=== PATIENT | male | born 1935 | race Caucasian/White ===

== ENCOUNTER 2022-12-18 09:16 | Inpatient (IN) | payer MEDICARE ==
[2022-12-14 12:18] LABS: BASOPHILS # (AUTO) 0.1 X10'3 (0-0.2); BASOPHILS % (AUTO) 1.1 % (0-1); EOSINOPHILS # (AUTO) 0.4 X10'3 (0-0.9); EOSINOPHILS % (AUTO) 7.3 % (0-6); LYMPHOCYTES # (AUTO) 1.2 X10'3 (1.1-4.8); LYMPHOCYTES % (AUTO) 25.3 % (21-51); MEAN CORPUSCULAR HEMOGLOBIN 30.6 PG (27.0-31.0); MEAN CORPUSCULAR HGB CONC 33.1 g/dL (33.0-36.5); MEAN CORPUSCULAR VOLUME 92.5 FL (78-98); MEAN PLATELET VOLUME 6.3 FL (7.4-10.4); MONOCYTES # (AUTO) 0.5 X10'3 (0-0.9); MONOCYTES % (AUTO) 11.2 % (2-12); NEUTROPHILS # (AUTO) 2.7 X10'3 (1.8-7.7); NEUTROPHILS % (AUTO) 55.1 % (42-75); PRE OP HEMATOCRIT 40.6 % (42.0-52.0); PRE OP HEMOGLOBIN 13.5 g/dL (14.0-17.9); PRE OP PLATELET COUNT 196 X10'3 (140-440); PRE OP WHITE BLOOD COUNT 4.8 10'3 (4.8-10.8); RED BLOOD COUNT 4.39 X10'6 (4.70-6.10); RED CELL DISTRIBUTION WIDTH 14.4 % (11.5-14.5)
[2022-12-14 12:49] LABS: APTT 38 SECONDS (22-32); INR 1.3 INR
[2022-12-14 12:57] LABS: ALBUMIN/GLOBULIN RATIO 0.7 (1.1-1.5); ALKALINE PHOSPHATASE 133 IU/L (46-116); BLOOD UREA NITROGEN 12 MG/DL (7-18); BUN/CREATININE RATIO 15.4 (10.0-20.0); CALCIUM 9.1 MG/DL (8.5-10.1); CHLORIDE 104 MMOL/L (99-107); CREATININE 0.78 MG/DL (0.60-1.10); PRE OP ALT 19 U/L (30-65); PRE OP ANION GAP 9 (8-16); PRE OP AST 29 U/L (10-37); PRE OP BILIRUB, TOTAL 0.9 MG/DL (0.0-1.0); PRE OP GLUCOSE 98 MG/DL (70-104); PRE OP POTASSIUM 4.1 MMOL/L (3.4-5.1); PRE OP SODIUM 138 MMOL/L (135-145); TOTAL CARBON DIOXIDE 24.9 MMOL/L (24-32); TOTAL PROTEIN 7.3 G/DL (6.4-8.2); eGFR > 90 ML/MIN
[2022-12-18] VITALS (19 sets, daily range): BP systolic 110–165; BP diastolic 59–80; PULSE 60–62; RESP 10–20; TEMP 96.5–98.4; O2SAT 97–100
[~2022-12-18] VITALS: Ht 175.3 cm; Wt 79.4 kg
[~2022-12-18 09:16] MED LIST: ATOR-2 PO; DOCUMENT DATE & TIME OF BETA-BLOCKER PO ONE; ENOX80SY7 SUBCUT; MALTODEXTRIN/FRUCTOSE 0.68 KCAL/ML LIQUID 296ML BOTTLE PO ONE; METO-384 PO; METO-411 PO; WARF7.5T48 PO; ceFOXitin 2GM-NS 100mL ADDvant 100 ML IV ONE; famotidine 20mg tablet PO ONE; heparin, porcine 5000 units/ml vial SQ ONE; metroNIDAZOLE-Flagyl 500mg/NS 100ml IVPB IV ONE; ringers solution, lacted 1,000 ML IV SCH
[2022-12-18] MEDS ORDERED: metroNIDAZOLE-Flagyl 500mg/NS 100 ML IV ONE (10:59)
[2022-12-18] MEDS ORDERED: CefTRIAXone 2000mg inj ONE (10:59)
[2022-12-18] MEDS ORDERED: LIDOcaine 1% W/epiNEPHrine 1:100,000 20ml vial ONE (10:59)
[2022-12-18] MEDS ORDERED: tobramycin 40mg/ml inj ONE (11:00)
[2022-12-18] MEDS ORDERED: povidone-iodine 10% ointment 1 APPLIC APPLIC TP ONE (11:01)
[2022-12-18] MEDS ORDERED: BUPIVAcaine/PF 2.5 mg/ml (0.25%) 30ml vial ONE (11:01)
[2022-12-18 11:55] LABS: PRE OP PARTIAL THROMB. TIME 27 SECONDS (22-32); PROTHROMBIN TIME 11.1 SECONDS (9.0-12.0)
[2022-12-18] MEDS ORDERED: LIDOcaine 1% (10mg/ml) 2ml vial ONE (12:20)
[2022-12-18] MEDS ORDERED: fentaNYL/PF 50MCG/1 ML 2ML syringe ONE ×2 (12:31→13:27)
[2022-12-18] MEDS ORDERED: propofol inj 20 ML IV ONE (12:33)
[2022-12-18] MEDS ORDERED: LIDOcaine 2% (20mg/ml) 5ml vial ONE (12:33)
[2022-12-18] MEDS ORDERED: sevoflurane 250ml liquid IH ONE (12:42)
[2022-12-18] MEDS ORDERED: hydrALAZINE 20mg/ml inj. IV ONE (12:42)
[2022-12-18] MEDS ORDERED: morphine 2 MG/ML inj. syringe IV PRN (12:45)
[2022-12-18] MEDS ORDERED: ondansetron/PF 4mg/2ml inj IV PRN ×2 (12:45→18:10)
[2022-12-18] MEDS ORDERED: HYDROmorphone/PF 0.2 MG/ML SYRINGE IV PRN (12:45)
[2022-12-18] MEDS ORDERED: ringers solution, lacted 1,000 ML IV SCH (12:45)
[2022-12-18] MEDS ORDERED: INDOCYANINE GREEN 25 MG/10 ML VIAL IV ONE ×2 (15:02→15:05)
[2022-12-18] MEDS ORDERED: phenylephrine 10mg/ml inj. -priapism dosing ONE (16:37)
[2022-12-18] MEDS ORDERED: rocuronium 10mg/ml inj IV ONE (16:37)
[2022-12-18] MEDS ORDERED: dexamethasone sod phosphate 4mg/ml inj. ONE (16:37)
[2022-12-18] MEDS ORDERED: ondansetron/PF 4mg/2ml inj ONE (16:37)
[2022-12-18] MEDS ORDERED: acetaminophen 1,000mg/100ml IV 100 ML IV ONE (16:40)
[2022-12-18] MEDS ORDERED: ceFOXitin 1000 MG inj ONE ×2 (16:53)
[2022-12-18] MEDS ORDERED: morphine 4 MG/ML inj SYRINge IV ONE (17:04)
[2022-12-18] MEDS ORDERED: albumin (Human) 5% 250ml 250 ML IV ONE (17:05)
[2022-12-18] MEDS ORDERED: ketamine 50mg/5ml syringe ONE (17:41)
--- NOTE | 2022-12-18 17:53 | NUR ---
Received from OR via HOSPITAL BED TO RR 6, accompanied by Anesthesiologist DR WHYTE and report given by Anesthesiolgist. PT PRESENTS WITH ART LINE RIGHT WRIST, PIV 20G LEFT WRIST, SPO2 100% 6L MASK, LR RUNNING 100MLS/HR, 2 ABD DRESSING CDI, VSS. Addendum: 12/18/22 at 1814 by Charisse Flores RN, RN Amended: Links added.
[2022-12-18] MEDS ORDERED: glycopyrrolate 0.2mg/ml inj ONE (17:54)
[2022-12-18] MEDS ORDERED: neostigmine methylsulfate 1 MG/ML 10ml vial ONE (17:54)
[2022-12-18] MEDS ORDERED: naloxone 0.4 mg/ml inj IV PRN (18:10)
[2022-12-18] MEDS: HYDROmorphone/PF 0.2 MG/ML SYRINGE IV PRN ×2 (18:16→18:35)
--- NOTE | 2022-12-18 18:19 | NUR ---
ART LINE REMOVED FROM PT'S RIGHT WRIST, SXS AND COBAN DRESSING PLACED. PT TOLERATED WELL.
--- NOTE | 2022-12-18 18:40 | NUR ---
PT'S DAUGHTER LIYAH [phone] SHE CAN BE CALLED AT ANYTIME NO MATTER WHAT THE SITUATION, "PER LIYAH"
[2022-12-18] MEDS: HYDROmorph/NS 0.2 mg/ml PCA 100 ML IV SCH ×3 (18:44→23:00)
[2022-12-18] MEDS ORDERED: LORazepam 2 mg/ml vial IV PRN (19:00)
--- NOTE | 2022-12-18 19:00 | NUR ---
Patient in room PAS IN 900. I have received report from JEROMY Mcqueen in the PACU and had the opportunity to ask questions and assume patient care.
--- NOTE | 2022-12-18 19:13 | NUR ---
Report called to receiving nurse SILVIANO PINZON. Transferred via HOSPITAL BED TO ROOM 9813P. BED IN LOW LOCKED POSITION, INNA LIGHT INREACH, PT HOOKED UP TO BEDSIDE VITALS MACHINE, PT TRANSPORTED ON TELE #[phone]. PT Belongings 1 BAG TAKEN TO ROOM WITH PATIENT. CHART TAKEN TO NURSES STATION, SILVIANO PINZON NOTIFIED PT I IN ROOM. Special Issues communicated to receiving nurse. Addendum: 12/18/22 at 1929 by Charisse Flores RN RN Amended: Links added.
--- NOTE | 2022-12-18 19:19 | NUR ---
Patient arrived from PACU on hospital bed and is A&Ox4, a little painful but Dilaudid CADD is set up. I will continue to monitor.
[2022-12-18] MEDS: normal saline 1000ml 1,000 ML IV SCH (20:16)
[2022-12-18] MEDS: docusate sod 100mg capsule PO SCH (20:29)
[2022-12-18] MEDS: atorvastatin 20mg tablet PO SCH (20:30)
[2022-12-18] MEDS: metoprolol succinate 25mg (24-HOUR) SR. Tablet PO SCH (20:30)
[2022-12-18] MEDS: heparin, porcine 5000 units/ml vial SQ SCH (20:35)
[2022-12-18] MEDS: potassium CL 20mEq in D5-1/2NS 1,000 ML IV SCH (22:39)
[2022-12-18] MEDS: metroNIDAZOLE-Flagyl 500mg/NS 100 ML IV SCH (23:47)
[2022-12-19] MEDS: ceFOXitin inj 1,000 MG in normal saline 100ml IV soln 100 ML IV SCH ×2 (00:16→11:15)
[2022-12-19] MEDS: HYDROmorph/NS 0.2 mg/ml PCA 100 ML IV SCH ×12 (01:00→23:00)
[2022-12-19 02:00] VITALS: BP 124/60; PULSE 61; RESP 14; TEMP 97.9; O2SAT 98
[2022-12-19 06:00] VITALS: BP 126/67; PULSE 60; RESP 16; TEMP 97.7; O2SAT 98
--- NOTE | 2022-12-19 06:20 | NUR ---
Problems reprioritized. Patient report given, questions answered & plan of care reviewed with JEROMY Velazquez.
[2022-12-19 06:40] LABS: BASOPHILS % (AUTO) 0.2 % (0-1); EOSINOPHILS % (AUTO) 0 % (0-6); HEMATOCRIT 34.4 % (42.0-52.0); HEMOGLOBIN 11.6 g/dl (14.0-17.9); LYMPHOCYTES # (AUTO) 0.6 X10'3 (1.1-4.8); LYMPHOCYTES % (AUTO) 12.6 % (21-51); MEAN CORPUSCULAR HEMOGLOBIN 31.2 PG (27.0-31.0); MEAN CORPUSCULAR HGB CONC 33.6 g/dL (33.0-36.5); MEAN CORPUSCULAR VOLUME 92.8 FL (78-98); MEAN PLATELET VOLUME 6.5 FL (7.4-10.4); MONOCYTES # (AUTO) 0.5 X10'3 (0-0.9); MONOCYTES % (AUTO) 11.6 % (2-12); NEUTROPHILS # (AUTO) 3.4 X10'3 (1.8-7.7); NEUTROPHILS % (AUTO) 75.6 % (42-75); PLATELET COUNT 165 X10'3 (140-440); RED BLOOD COUNT 3.71 X10'6 (4.70-6.10); RED CELL DISTRIBUTION WIDTH 14.5 % (11.5-14.5); WHITE BLOOD COUNT 4.4 X10'3 (4.5-11.0)
[2022-12-19 07:00] LABS: INR 1.1 INR; PROTHROMBIN TIME 11.4 SECONDS (9.0-12.0)
[2022-12-19 07:02] LABS: ALBUMIN 2.7 G/DL (3.4-5.0); ANION GAP 6 (8-16); BLOOD UREA NITROGEN 7 MG/DL (7-18); BUN/CREATININE RATIO 8.5 (10.0-20.0); CALCIUM 8.6 MG/DL (8.5-10.1); CHLORIDE 104 MMOL/L (99-107); CREATININE 0.82 MG/DL (0.60-1.10); GLUCOSE 152 MG/DL (70-104); LIPASE < 50 U/L (73-393); PHOSPHORUS 3.9 MG/DL (2.3-4.5); POTASSIUM 4.2 MMOL/L (3.5-5.1); SODIUM 135 MMOL/L (135-145); TOTAL CARBON DIOXIDE 24.8 MMOL/L (24-32); eCRCL 62 ML/MIN; eGFR 89 ML/MIN
--- NOTE | 2022-12-19 07:08 | NUR ---
Patient in room ORTHO 4015. I have received report from Valerie PINZON and had the opportunity to ask questions and assume patient care.
[2022-12-19] MEDS: docusate sod 100mg capsule PO SCH ×2 (07:50→21:02)
[2022-12-19] MEDS: metoprolol succinate 25mg (24-HOUR) SR. Tablet PO SCH ×2 (07:50→21:02)
[2022-12-19] MEDS: heparin, porcine 5000 units/ml vial SQ SCH ×2 (07:50→21:03)
[2022-12-19] MEDS: potassium CL 20mEq in D5-1/2NS 1,000 ML IV SCH ×2 (07:51→19:27)
[2022-12-19] MEDS: metroNIDAZOLE-Flagyl 500mg/NS 100 ML IV SCH ×2 (07:51→16:44)
[2022-12-19 10:00] VITALS: BP 123/59; PULSE 60; RESP 18; TEMP 98; O2SAT 96
[2022-12-19 18:00] VITALS: BP 140/74; PULSE 71; RESP 16; TEMP 97.9; O2SAT 94
--- NOTE | 2022-12-19 19:00 | NUR ---
patient seen by dr Cheng, orders given. patient given IS and ambulated x2 around hallway. dressing to midline CDI. Continues with Dilaudid cadd pain well controlled. perdue DC patient able to void. BS 20mls observed. Report given to Muna PINZON
--- NOTE | 2022-12-19 19:02 | NUR ---
Patient in room ORTHO 4015. I have received report from REED PINZON and had the opportunity to ask questions and assume patient care.
[2022-12-19 20:00] VITALS: RESP 18; O2SAT 96
[2022-12-19] MEDS: atorvastatin 20mg tablet PO SCH (21:00)
[2022-12-19 22:00] VITALS: BP 133/65; PULSE 80; RESP 18; TEMP 97.8; O2SAT 93
[2022-12-20] VITALS (10 sets, daily range): BP systolic 139–175; BP diastolic 67–82; PULSE 59–70; RESP 15–20; TEMP 97.4–98.1; O2SAT 92–97
[2022-12-20] MEDS: HYDROmorph/NS 0.2 mg/ml PCA 100 ML IV SCH ×12 (01:00→23:00)
[2022-12-20] MEDS: metroNIDAZOLE-Flagyl 500mg/NS 100 ML IV SCH (01:16)
--- NOTE | 2022-12-20 06:05 | NUR ---
received report from joce tapia
--- NOTE | 2022-12-20 06:12 | NUR ---
Problems reprioritized. Patient report given, questions answered & plan of care reviewed with DORA PINZON.
[2022-12-20 06:54] LABS: BASOPHILS % (AUTO) 0.6 % (0-1); EOSINOPHILS % (AUTO) 0.9 % (0-6); HEMATOCRIT 33.4 % (42.0-52.0); HEMOGLOBIN 11.2 g/dl (14.0-17.9); LYMPHOCYTES # (AUTO) 0.7 X10'3 (1.1-4.8); LYMPHOCYTES % (AUTO) 13.8 % (21-51); MEAN CORPUSCULAR HEMOGLOBIN 31.3 PG (27.0-31.0); MEAN CORPUSCULAR HGB CONC 33.5 g/dL (33.0-36.5); MEAN CORPUSCULAR VOLUME 93.3 FL (78-98); MEAN PLATELET VOLUME 6.4 FL (7.4-10.4); MONOCYTES # (AUTO) 0.6 X10'3 (0-0.9); MONOCYTES % (AUTO) 11.8 % (2-12); NEUTROPHILS # (AUTO) 3.4 X10'3 (1.8-7.7); NEUTROPHILS % (AUTO) 72.9 % (42-75); PLATELET COUNT 150 X10'3 (140-440); RED BLOOD COUNT 3.58 X10'6 (4.70-6.10); RED CELL DISTRIBUTION WIDTH 14.3 % (11.5-14.5); WHITE BLOOD COUNT 4.7 X10'3 (4.5-11.0)
[2022-12-20 07:12] LABS: ALBUMIN 2.6 G/DL (3.4-5.0); ANION GAP 7 (8-16); BLOOD UREA NITROGEN 6 MG/DL (7-18); BUN/CREATININE RATIO 7.6 (10.0-20.0); CALCIUM 8.8 MG/DL (8.5-10.1); CHLORIDE 107 MMOL/L (99-107); CREATININE 0.79 MG/DL (0.60-1.10); GLUCOSE 125 MG/DL (70-104); LIPASE 63 U/L (73-393); PHOSPHORUS 2.7 MG/DL (2.3-4.5); POTASSIUM 4.2 MMOL/L (3.5-5.1); SODIUM 138 MMOL/L (135-145); TOTAL CARBON DIOXIDE 24.4 MMOL/L (24-32); eCRCL 65 ML/MIN; eGFR > 90 ML/MIN
[2022-12-20] MEDS: docusate sod 100mg capsule PO SCH ×2 (07:35→20:45)
[2022-12-20] MEDS: metoprolol succinate 25mg (24-HOUR) SR. Tablet PO SCH ×2 (07:38→20:46)
[2022-12-20] MEDS: heparin, porcine 5000 units/ml vial SQ SCH ×2 (07:39→20:51)
--- NOTE | 2022-12-20 09:48 | NUR ---
Student documentation: I have reviewed assessments performed and documented by Jannet Espino. Student Medication Administration: For this medication-pass time frame of 8522-7766, all medication were reviewed, dispensed, administered and documented per hospital policy by Jannet Espino.
[2022-12-20] MEDS: potassium CL 20mEq in D5-1/2NS 1,000 ML IV SCH (14:56)
--- NOTE | 2022-12-20 15:41 | NUR ---
per dr hannah - asked me to have hospitalist begin lovenox, pt is already on heprin, sent page to hospitalist to notify him of dr hannah request, no new orders at this time
--- NOTE | 2022-12-20 17:39 | NUR ---
hospitalist called back to notify me that the patient is on heparin and that there is not a need for lovenox at this time but to check with dr hannah when he rounds in regards to heparin vs lovenox, continue to monitor patient
[2022-12-20] MEDS: normal saline 1000ml 1,000 ML IV SCH (18:10)
--- NOTE | 2022-12-20 18:16 | NUR ---
gave report to orquidea irving rn
[2022-12-20] MEDS ORDERED: LORazepam 1 MG tablet PO PRN (19:00)
[2022-12-20] MEDS ORDERED: LORazepam 2 mg/ml vial IV PRN (19:00)
[2022-12-20] MEDS: atorvastatin 20mg tablet PO SCH (20:46)
--- NOTE | 2022-12-20 22:34 | NUR ---
Reviewed and edited student assessment - per my assessment.
--- NOTE | 2022-12-20 23:35 | NUR ---
called Hospitalist[facility]ji. Explained that Dr. Castro wrote in his progress note that patient is anticoagulated on Lovenox, but patient is on [address] Mendoza wanted me to call Dr Castro to clarify order. Called Dr. Castro to explain that patient is on Heparin SQ, not weight based Lovenox and that patient also takes Warfarin at home. Dr Castro stated that it will be addressed tomorrow.
--- NOTE | 2022-12-20 23:38 | NUR ---
Charting by Avila Ying reviewed by Mayank Watkins RN
[2022-12-21] MEDS: HYDROmorph/NS 0.2 mg/ml PCA 100 ML IV SCH ×4 (01:00→07:00)
[2022-12-21 06:31] VITALS: RESP 16; O2SAT 98
--- NOTE | 2022-12-21 06:31 | NUR ---
Problems reprioritized. Patient report given, questions answered & plan of care reviewed with JEROMY Velazquez.
[2022-12-21 07:01] LABS: BASOPHILS % (AUTO) 0.4 % (0-1); EOSINOPHILS # (AUTO) 0.1 X10'3 (0-0.9); EOSINOPHILS % (AUTO) 1.3 % (0-6); HEMATOCRIT 35.8 % (42.0-52.0); HEMOGLOBIN 12.1 g/dl (14.0-17.9); LYMPHOCYTES # (AUTO) 0.8 X10'3 (1.1-4.8); LYMPHOCYTES % (AUTO) 15.9 % (21-51); MEAN CORPUSCULAR HGB CONC 33.8 g/dL (33.0-36.5); MEAN CORPUSCULAR VOLUME 91.5 FL (78-98); MEAN PLATELET VOLUME 6.1 FL (7.4-10.4); MONOCYTES # (AUTO) 0.6 X10'3 (0-0.9); MONOCYTES % (AUTO) 12.9 % (2-12); NEUTROPHILS # (AUTO) 3.4 X10'3 (1.8-7.7); NEUTROPHILS % (AUTO) 69.5 % (42-75); PLATELET COUNT 167 X10'3 (140-440); RED BLOOD COUNT 3.91 X10'6 (4.70-6.10); RED CELL DISTRIBUTION WIDTH 14.6 % (11.5-14.5); WHITE BLOOD COUNT 4.9 X10'3 (4.5-11.0)
[2022-12-21 07:14] LABS: PROTHROMBIN TIME 11.1 SECONDS (9.0-12.0)
[2022-12-21] MEDS: heparin, porcine 5000 units/ml vial SQ SCH (07:14)
[2022-12-21 07:15] VITALS: BP 177/80; PULSE 63; RESP 16; TEMP 98.1; O2SAT 98
--- NOTE | 2022-12-21 07:16 | NUR ---
Patient in room ORTHO 4015. I have received report from Valerie PINZON and had the opportunity to ask questions and assume patient care.
[2022-12-21] MEDS: docusate sod 100mg capsule PO SCH (07:18)
[2022-12-21] MEDS: metoprolol succinate 25mg (24-HOUR) SR. Tablet PO SCH (07:18)
[2022-12-21] MEDS ORDERED: psyllium seed 5.8 gm packet (sugar-free) PO SCH (07:25)
[2022-12-21] MEDS ORDERED: magnesium hydroxide 30ml (MOM) UD suspension PO ONE (07:25)
[2022-12-21 07:29] LABS: ALBUMIN 2.8 G/DL (3.4-5.0); ANION GAP 8 (8-16); BLOOD UREA NITROGEN 6 MG/DL (7-18); BUN/CREATININE RATIO 8.3 (10.0-20.0); CALCIUM 9.2 MG/DL (8.5-10.1); CHLORIDE 104 MMOL/L (99-107); CREATININE 0.72 MG/DL (0.60-1.10); GLUCOSE 125 MG/DL (70-104); LIPASE < 50 U/L (73-393); PHOSPHORUS 2.3 MG/DL (2.3-4.5); SODIUM 137 MMOL/L (135-145); TOTAL CARBON DIOXIDE 25.3 MMOL/L (24-32); eCRCL 71 ML/MIN; eGFR > 90 ML/MIN
[2022-12-21] MEDS: enoxaparin 80mg/0.8ml syringe SUBCUT SCH ×2 (08:00→16:12)
[2022-12-21] MEDS ORDERED: HYDROcodone/acetaminophen 5mg/325mg tablet PO PRN (08:35)
[2022-12-21] MEDS ORDERED: PCA WASTE DOCUMENTATION 1 MG ML MC SCH (09:20)
[2022-12-21 10:06] VITALS: BP 131/77; PULSE 68; RESP 14; TEMP 97.5; O2SAT 95
[2022-12-21] MEDS ORDERED: acetaminophen 325mg tablet PO PRN (11:10)
[2022-12-21] MEDS ORDERED: ibuprofen 200mg tablet PO PRN (11:10)
[2022-12-21] MEDS ORDERED: HYDR-3964 PO (14:33)
[2022-12-21] MEDS ORDERED: enoxaparin 80mg/0.8ml syringe SUBCUT ONE (16:10)
--- NOTE | 2022-12-21 18:40 | NUR ---
Dr hannah into see patient order given that patient can be Dc if he has a BM . patient did have medium BM. Dr hannah back to see patient , ok for DC. [facility] clinic called with regards coverage for Lovenox and warfarin as patient is under heart clinic for anticoagulation. Talked with Airam PINZON . Instructions given. lovenox called into [facility] in [place]. Patient DC home in stable condition in private car with family member.
[2022-12-22] MEDS ORDERED: LORazepam 2 mg/ml vial IV PRN (19:00)
[2022-12-22] MEDS ORDERED: LORazepam 1 MG tablet PO PRN (19:00)
== END 2022-12-21 16:30 | disposition home or self-care (01) | DRG 330 ==
LOC: PAS IN 09:16 → ORTHO 4S 19:15
PROVIDERS: ADMIT Colon & Rectal Surgery; ATTEND Colon & Rectal Surgery
PROC: 8E0W4CZ Robotic Assisted Procedure of Trunk Region, Percutaneous Endoscopic Approach (ICD-10-PCS; 2022-12-18)
PROC: 05HY33Z Insertion of Infusion Device into Upper Vein, Percutaneous Approach (ICD-10-PCS; 2022-12-18)
PROC: 0DBM4ZZ Excision of Descending Colon, Percutaneous Endoscopic Approach (ICD-10-PCS; principal; 2022-12-18 12:42)
DX: C18.6 Malignant neoplasm of descending colon (principal); I48.20 Chronic atrial fibrillation, unspecified; E78.5 Hyperlipidemia, unspecified; I48.91 Unspecified atrial fibrillation; I25.10 Atherosclerotic heart disease of native coronary artery without angina pectoris; I44.0 Atrioventricular block, first degree; K66.0 Peritoneal adhesions (postprocedural) (postinfection); Z80.8 Family history of malignant neoplasm of other organs or systems; Z88.0 Allergy status to penicillin; Z79.899 Other long term (current) drug therapy; Z79.01 Long term (current) use of anticoagulants; Z80.1 Family history of malignant neoplasm of trachea, bronchus and lung; Z95.5 Presence of coronary angioplasty implant and graft; Z85.05 Personal history of malignant neoplasm of liver
CPT/HCPCS: 36415; 80048; 80053; 82948; 83690; 84100; 85025; 85610; 85730; 86885; 86900; 86901; 87081; A4346; A4355; A4402; A4615; A4618; A6212; A6258; A6449; A7000; C1758; G0378; J0131; J0360; J0694; J0696; J1100; J1170; J1644; J1650; J2270; J2370; J2405; J2704; J2710; J3010; J3260; J3480; J3490; J7030; J7120; P9045

== ENCOUNTER → 2023-11-01 | Outpatient (CLI) | payer MEDICARE ==
[~2023-11-01] MED LIST changes: -DOCUMENT DATE & TIME OF BETA-BLOCKER PO ONE; +HYDR-3964 PO; +IODIXANOL 320 MG/ML INFUS..BTL 100ML IV ONE; -MALTODEXTRIN/FRUCTOSE 0.68 KCAL/ML LIQUID 296ML BOTTLE PO ONE; -ceFOXitin 2GM-NS 100mL ADDvant 100 ML IV ONE; -famotidine 20mg tablet PO ONE; -heparin, porcine 5000 units/ml vial SQ ONE; -metroNIDAZOLE-Flagyl 500mg/NS 100ml IVPB IV ONE; -ringers solution, lacted 1,000 ML IV SCH
[2023-11-01 12:13] LABS: EOSINOPHILS # (AUTO) 0.5 X10'3 (0-0.9); EOSINOPHILS % (AUTO) 10.3 % (0-6); HEMATOCRIT 42.6 % (42.0-52.0); HEMOGLOBIN 14.3 g/dl (14.0-17.9); LYMPHOCYTES # (AUTO) 0.8 X10'3 (1.1-4.8); LYMPHOCYTES % (AUTO) 17.6 % (21-51); MEAN CORPUSCULAR HEMOGLOBIN 32.3 PG (27.0-31.0); MEAN CORPUSCULAR HGB CONC 33.6 g/dL (33.0-36.5); MEAN CORPUSCULAR VOLUME 96.2 FL (78-98); MEAN PLATELET VOLUME 6.5 FL (7.4-10.4); MONOCYTES # (AUTO) 0.6 X10'3 (0-0.9); MONOCYTES % (AUTO) 12.8 % (2-12); NEUTROPHILS # (AUTO) 2.8 X10'3 (1.8-7.7); NEUTROPHILS % (AUTO) 58.3 % (42-75); PLATELET COUNT 185 X10'3 (140-440); RED BLOOD COUNT 4.43 X10'6 (4.70-6.10); RED CELL DISTRIBUTION WIDTH 17.8 % (11.5-14.5); WHITE BLOOD COUNT 4.8 X10'3 (4.5-11.0)
[2023-11-01 12:24] LABS: APTT 41 SECONDS (22-32); INR 3.9 INR; PROTHROMBIN TIME 37.1 SECONDS (9.0-12.0)
[2023-11-01 12:32] LABS: ALANINE AMINOTRANSFERASE 27 U/L (12-78); ALBUMIN 3.2 G/DL (3.4-5.0); ALBUMIN/GLOBULIN RATIO 0.7 (1.1-1.5); ALKALINE PHOSPHATASE 164 IU/L (46-116); ANION GAP 10 (8-16); ASPARTATE AMINO TRANSFERASE 24 U/L (10-37); BILIRUBIN,TOTAL 0.6 MG/DL (0.1-1.0); BLOOD UREA NITROGEN 15 MG/DL (7-18); BUN/CREATININE RATIO 18.8 (10.0-20.0); CALCIUM 9.4 MG/DL (8.5-10.1); CHLORIDE 106 MMOL/L (99-107); GLUCOSE 99 MG/DL (70-104); POTASSIUM 4.6 MMOL/L (3.5-5.1); PRO BRAIN NATRIURETIC PEPTIDE 580 PG/ML (0-450); SODIUM 141 MMOL/L (135-145); TOTAL CARBON DIOXIDE 25.5 MMOL/L (24-32); TOTAL PROTEIN 7.7 G/DL (6.4-8.2); eGFR > 90 ML/MIN
== END | disposition home or self-care (01) ==
LOC: RAD 11:14
PROVIDERS: ATTEND Internal Medicine Cardiovascular Disease
DX: I35.0 Nonrheumatic aortic (valve) stenosis (principal); R06.02 Shortness of breath; I65.29 Occlusion and stenosis of unspecified carotid artery; E27.9 Disorder of adrenal gland, unspecified; J90 Pleural effusion, not elsewhere classified; J98.11 Atelectasis
CPT/HCPCS: 36415; 71046; 71275; 74174; 75572; 80053; 83880; 85025; 85610; 85730; Q9967

== ENCOUNTER 2023-11-29 11:40 | Outpatient (CLI) | payer MEDICARE ==
[~2023-11-29] VITALS: Ht 175.3 cm; Wt 88.1 kg
[~2023-11-29 11:40] MED LIST changes: -IODIXANOL 320 MG/ML INFUS..BTL 100ML IV ONE
[2023-11-29 12:11] VITALS: BP 152/92; PULSE 85; RESP 14; TEMP 96; O2SAT 96
== END 2023-11-29 23:59 | disposition home or self-care (01) ==
LOC: TAVR 11:40
PROVIDERS: ATTEND Internal Medicine Cardiovascular Disease
DX: I35.0 Nonrheumatic aortic (valve) stenosis (principal); R06.02 Shortness of breath; I65.29 Occlusion and stenosis of unspecified carotid artery

== ENCOUNTER 2023-12-21 14:07 | Outpatient (CLI) | payer MEDICARE | END 2023-12-21 23:59 | disposition home or self-care (01) | LOC: CARD DIAG 14:07 | PROVIDERS: ATTEND Internal Medicine Cardiovascular Disease | DX: I08.8 Other rheumatic multiple valve diseases (principal); R06.02 Shortness of breath; I65.29 Occlusion and stenosis of unspecified carotid artery | CPT/HCPCS: 93306 ==